=== PATIENT | female | born 2000 | race Caucasian/White ===

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

== ENCOUNTER → 2022-03-24 10:32 | Outpatient (BNVA) | payer MEDICAID, SELFPAY | PROVIDERS: PCP Nurse Practitioner; Visit Provider Nurse Practitioner Family | DX: R05.9 Cough, unspecified (principal); Z20.828 Contact with and (suspected) exposure to other viral communicable diseases; R68.89 Other general symptoms and signs | CPT/HCPCS: 87400 ==

== ENCOUNTER → 2022-04-15 10:47 | Outpatient (BNVA) | payer MEDICAID, SELFPAY | PROVIDERS: PCP Nurse Practitioner; Visit Provider Nurse Practitioner Family | DX: Z72.51 High risk heterosexual behavior (principal); F41.1 Generalized anxiety disorder; J30.1 Allergic rhinitis due to pollen | CPT/HCPCS: 81025 ==

== ENCOUNTER → 2022-08-04 08:50 | Outpatient (BNVA) | payer MEDICAID, SELFPAY | PROVIDERS: PCP Nurse Practitioner; Visit Provider Family Medicine | DX: F41.1 Generalized anxiety disorder (principal); R20.2 Paresthesia of skin; R51.9 Headache, unspecified; R53.1 Weakness | CPT/HCPCS: 80053; 82607; 84443; 85025; 85651; 86141; 86160; 86162; 86235; 86255; 86376 ==

== ENCOUNTER → 2022-08-25 13:10 | Outpatient (BNVA) | payer MEDICAID, SELFPAY | PROVIDERS: PCP Nurse Practitioner; Visit Provider Student in an Organized Health Care Education/Training Program | DX: S52.121A Displaced fracture of head of right radius, initial encounter for closed fracture (principal); V80.010A Animal-rider injured by fall from or being thrown from horse in noncollision accident, initial encounter | CPT/HCPCS: 73080 ==

== ENCOUNTER → 2022-09-01 08:38 | Outpatient (BNVA) | payer MEDICAID, SELFPAY | PROVIDERS: PCP Nurse Practitioner; Visit Provider Nurse Practitioner Family | DX: R50.9 Fever, unspecified (principal) | CPT/HCPCS: 87071; 87880 ==

== ENCOUNTER 2022-09-04 06:00 | Outpatient (RCR) | payer MEDICAID, SELFPAY | END 2022-09-28 23:59 | disposition home or self-care (01) | LOC: APT 06:00 | PROVIDERS: PCP Nurse Practitioner; Visit Provider Student in an Organized Health Care Education/Training Program | DX: S52.121D Displaced fracture of head of right radius, subsequent encounter for closed fracture with routine healing (principal); X58.XXXD Exposure to other specified factors, subsequent encounter | CPT/HCPCS: 97110; 97140; 97162 ==

== ENCOUNTER → 2022-09-08 13:16 | Outpatient (BNVA) | payer MEDICAID, SELFPAY | PROVIDERS: PCP Nurse Practitioner; Visit Provider Student in an Organized Health Care Education/Training Program | DX: S52.121A Displaced fracture of head of right radius, initial encounter for closed fracture (principal); X58.XXXA Exposure to other specified factors, initial encounter | CPT/HCPCS: 73080 ==

== ENCOUNTER → 2022-09-11 17:37 | Outpatient (BNVA) | payer MEDICAID, SELFPAY | PROVIDERS: PCP Family Medicine; Visit Provider Registered Nurse Neonatal Intensive Care | DX: J02.9 Acute pharyngitis, unspecified (principal) | CPT/HCPCS: 87880 ==

== ENCOUNTER 2022-09-29 06:00 | Outpatient (RCR) | payer MEDICAID, SELFPAY | END 2022-10-28 23:59 | disposition home or self-care (01) | LOC: APT 06:00 | PROVIDERS: PCP Family Medicine; Visit Provider Student in an Organized Health Care Education/Training Program | DX: S52.121D Displaced fracture of head of right radius, subsequent encounter for closed fracture with routine healing (principal); X58.XXXD Exposure to other specified factors, subsequent encounter | CPT/HCPCS: 97110; 97140 ==

== ENCOUNTER → 2022-10-06 14:56 | Outpatient (BNVA) | payer MEDICAID, SELFPAY | PROVIDERS: PCP Family Medicine; Visit Provider Student in an Organized Health Care Education/Training Program | DX: S52.121A Displaced fracture of head of right radius, initial encounter for closed fracture (principal); X58.XXXA Exposure to other specified factors, initial encounter | CPT/HCPCS: 73080 ==

== ENCOUNTER → 2023-01-18 15:00 | Outpatient (BNVA) | payer MEDICAID, SELFPAY | PROVIDERS: PCP Family Medicine; Visit Provider Obstetrics & Gynecology | DX: Z01.419 Encounter for gynecological examination (general) (routine) without abnormal findings (principal) | CPT/HCPCS: 88175 ==

== ENCOUNTER → 2023-04-06 08:05 | Outpatient (BNVA) | payer OTHER, MEDICAID, SELFPAY | PROVIDERS: PCP Family Medicine; Visit Provider Family Medicine | DX: R01.1 Cardiac murmur, unspecified (principal) | CPT/HCPCS: 80053; 80061; 84443; 85025 ==

== ENCOUNTER 2023-05-28 06:16 | Outpatient (CLI) | payer MEDICAID, SELFPAY ==
--- NOTE | 2023-05-28 06:30 | USCV_ITS ---
Jaye Gaviria Age: 23 Gender: F : 2000 Exam Date: 05/28/2023 06:30 Ordering Phys: Hermilo Danielle DO Technologist: Exam Location: [facility] [place] Indication: Murmur BP: / HR: 63 Rhythm: Sinus Technical Quality: Adequate MEASUREMENTS (Male / Female) Normal Values 2D ECHO LV Diastolic Diameter PLAX 3.5 cm 4.2 - 5.9 / 3.9 - 5.3 cm LV Systolic Diameter PLAX 2.4 cm IVS Diastolic Thickness 0.9 cm 0.6 - 1.0 / 0.6 - 0.9 cm IVS Systolic Thickness 1.1 cm LVPW Diastolic Thickness 0.9 cm 0.6 - 1.0 / 0.6 - 0.9 cm LVPW Systolic Thickness 1.1 cm LVOT Diameter 2.0 cm LV Ejection Fraction 2D Teich 63.5 % LV Ejection Fraction MOD 2C 78.3 % LV Ejection Fraction 2C AL 77.3 % LA Diameter 2.5 cm IVC Diameter 2.3 cm M-MODE Aortic Annulus Diameter 2.4 cm LA Ao Ratio MM 1.1 MV E Point Septal Separation 0.5 cm DOPPLER AV Peak Velocity 140.0 cm/s LVOT Peak Velocity 108.0 cm/s AV Area Cont Eq vti 2.6 cm squared AV Area Cont Eq pk 2.5 cm squared MV Area PHT 3.9 cm squared Mitral E to A Ratio 2.2 MV E' Velocity 62.0 cm/s Mitral E to MV E' Ratio 5.4 Mitral E to LV E' Lateral Ratio 5.3 Mitral E to LV E' Septal Ratio 5.6 TR Peak Velocity 215.0 cm/s TR Peak Gradient 18.5 mmHg RV Acceleration Time 0.2 s FINDINGS Left Ventricle Normal left ventricular size, systolic function and wall thickness, with no regional wall motion abnormalities. Left ventricular ejection fraction is estimated at 70 %. Normal diastolic function for age. Right Ventricle Normal right ventricular size and systolic function. Right ventricular systolic pressure 20 mmHg. Right Atrium Normal right atrial size. Left Atrium Normal left atrial size. Mitral Valve Structurally normal mitral valve. No mitral valve stenosis. No mitral valve regurgitation. Aortic Valve Aortic valve not well visualized. No aortic valve stenosis. No aortic valve regurgitation. Tricuspid Valve Structurally normal tricuspid valve. Trace tricuspid valve regurgitation. Pulmonic Valve Pulmonic valve not well visualized. No pulmonary valve stenosis. Trace pulmonary valve regurgitation. Pericardium No pericardial effusion. Aorta Normal size aortic root and proximal ascending aorta. IVC Normal IVC dimension with >50% respiratory change of the inferior vena cava. CONCLUSIONS 1. Normal left ventricular size, systolic function and wall thickness, with no regional wall motion abnormalities. Left ventricular ejection fraction is estimated at 70 %. Normal diastolic function for age. 2. Pulmonary artery pressure estimated at 20 mm Hg. 3. No prior similar studies to compare. Portia De Anda MD (Electronically Signed) Final Date: 28 May 2023 17:14 S
== END 2023-05-28 06:17 | disposition home or self-care (01) ==
PROVIDERS: PCP Family Medicine; Visit Provider Family Medicine
DX: R01.1 Cardiac murmur, unspecified (principal)
CPT/HCPCS: 80053; 80061; 84443; 85025; 93306

== ENCOUNTER → 2023-07-29 14:00 | Outpatient (BNVA) | payer MEDICAID, SELFPAY | PROVIDERS: PCP Family Medicine; Visit Provider Obstetrics & Gynecology | DX: Z32.00 Encounter for pregnancy test, result unknown (principal) | CPT/HCPCS: 84702 ==

== ENCOUNTER → 2023-08-19 08:35 | Outpatient (BNVA) | payer MEDICAID, SELFPAY | PROVIDERS: PCP Family Medicine; Visit Provider Nurse Practitioner Women's Health | DX: Z32.00 Encounter for pregnancy test, result unknown (principal) | CPT/HCPCS: 84702 ==

== ENCOUNTER → 2023-08-23 10:32 | Outpatient (BNVA) | payer MEDICAID, SELFPAY | PROVIDERS: PCP Family Medicine; Visit Provider Nurse Practitioner Women's Health | DX: Z32.00 Encounter for pregnancy test, result unknown (principal) | CPT/HCPCS: 84702 ==

== ENCOUNTER → 2023-09-15 09:42 | Outpatient (BNVA) | payer MEDICAID, SELFPAY | PROVIDERS: PCP Family Medicine; Visit Provider Nurse Practitioner Women's Health | DX: Z34.90 Encounter for supervision of normal pregnancy, unspecified, unspecified trimester (principal); Z32.01 Encounter for pregnancy test, result positive | CPT/HCPCS: 84315; 84702 ==

== ENCOUNTER 2023-10-01 15:27 | Emergency (ER) | payer MEDICAID, SELFPAY ==
[2023-10-01 15:47] VITALS: BP 119/70; PULSE 80; RESP 15; TEMP 36.8; O2SAT 100; BMI 24.0
--- NOTE | 2023-10-01 15:54 | USR_ITS ---
PROCEDURE INFORMATION: Exam: US First Trimester, Transabdominal and US , Transvaginal Exam date and time: 10/01/2023 4:26 PM Age: 23 years old Clinical indication: Lmp or gestational age (in weeks): 9w5d; Other: Bleeding/cramping; ; Additional info: 9 wks preg/bleeding/cramping LABS AND CLINICAL REPORTS: Last menstrual period start date: 07/26/2023 Gestational age (Established): 9 w 4 d Estimated due date (Established): 05/01/2024 TECHNIQUE: Imaging protocol: Real-time transabdominal obstetrical ultrasound of the maternal pelvis and a first trimester , less than 14 weeks 0 days, with image documentation. Transvaginal imaging was used for better evaluation of the fetus, adnexa, and/or cervix. COMPARISON: CT abdomen pelvis w con* [id number] 07/23/2021 11:19 AM FINDINGS: Gestation: Intrauterine gestation. Embryonic/ heart rate: 171 bpm Extra-embryonic membranes/Placenta: Unremarkable. No subchorionic bleed. Posterior forming placenta. Amniotic fluid: Amniotic fluid and extra-amniotic fluid is normal for gestational age. BIOMETRY: Gestational age (AUA): 9 w 5 d [place]-Rump length (CRL): 28.4 mm. EGA (CRL) is 9 w 5 d MATERNAL: Uterus: Unremarkable. Cervix: Cervical length measures 3 cm. Right ovary/adnexa: Not visualized. Left ovary/adnexa: Not visualized. Intraperitoneal space: No intraperitoneal free fluid. US/US OB <= 14 weeks fetus [id number] IMPRESSION: 1. Single viable intrauterine gestation, estimated at 9 weeks 5 days.
[2023-10-01 16:49] LABS: Basophils % 0.4 %; Eosinophils # 0.1 10^3/uL (0.0-0.8); Eosinophils % 0.9 %; Lymphocytes # 1.9 10^3/uL (0.8-4.8); Mean Corpuscular HGB Conc 32.8 g/dL (30-55); Mean Corpuscular Hemoglobin 28.9 pg (27-33); Mean Corpuscular Volume 88.3 fl (85-98); Monocytes # 0.5 10^3/uL (0.2-0.9); Monocytes % 6.3 %; Neutrophils # 5.99 10^3/uL (1.8-7.7); Neutrophils % 70.2 %; Nucleated Red Blood Cells % 0 %; Platelet Count 214 10^3/cmm (157-399); Red Blood Count 4.53 10^6/uL (3.85-5.65); Red Cell Distribution Width 12.6 % (12.1-15.1); White Blood Count 8.54 10^3/uL (3.29-11.43)
[2023-10-01 17:49] LABS: Alanine Aminotransferase 10 U/L (0-33); Albumin Level 4.3 g/dL (3.5-5.2); Alkaline Phosphatase 51 U/L (35-105); Anion Gap 14.5 (5-19); Aspartate Amino Transferase 15 U/L (0-32); Blood Urea Nitrogen 8 mg/dL (6-20); Carbon Dioxide 24 mmol/L (22-29); Chloride 103 mmol/L (98-107); Globulin 2.8 g/dL (1.3-4.6); Glomerular Filtration Rate 105.6 mL/min (90-130); Glucose 55 mg/dL (65-115); Osmolality Calculated 282 mOsm/kg (285-295); Potassium 3.5 mmol/L (3.5-5.1); Sodium 138 mmol/L (136-145); Total Bilirubin 0.6 mg/dL (0.15-1.2); Total Protein 7.1 g/dL (6.6-8.7)
[2023-10-01 19:37] VITALS: BP 128/61; PULSE 74; RESP 16; O2SAT 95
[2023-10-01 20:02] VITALS: BP 117/70; PULSE 101; RESP 16; TEMP 36.7
[2023-10-01 20:24] VITALS: BP 118/64; PULSE 77; RESP 16; TEMP 36.6; O2SAT 100
--- NOTE | 2023-10-01 22:44 | W.ED.PREGNAN ---
HPI - General: Chief complaint: Vaginal Bleeding Stated complaint: cramping, spotting, 9 weeks Time Seen by Provider: 10/01/23 19:22 Source: patient Mode of arrival: ambulatory Limitations: no limitations History of Present Illness: Patient presents to the emergency department today for evaluation treatment of vaginal spotting in . Patient states that she has a history of miscarriage and recently found out she was . She has had an AIR CONDITIONING INSULATION INSTALLER visit confirming but has not had an ultrasound at this time. Patient is due back to see her AIR CONDITIONING INSULATION INSTALLER in a couple of weeks. She was told to go to the emergency department for vaginal bleeding. She states last night she had some mucousy and light pink discharge vaginally. She states she did not have to wear a pad and has not had any bleeding today. She denies fevers, vomiting, severe abdominal pains. Related Data: : 2 Review of Systems General: Reports: 10 or more systems reviewed and unremarkable except in HPI and below PFSH ED PFSH: Medical History Fracture of head of right radius No pertinent past medical history Denies diabetes, asthma, hypertension, seizures, DVT/PE PCP: MACARENA Weaver Surgical History H/O wisdom tooth extraction (~08/2019) Hx of tonsillectomy age 5 Family History Grandfather Diabetes maternal Stroke maternal Heart disease paternal Grandmother Diabetes maternal and paternal Hypertension maternal Heart disease maternal Father Stroke Denies family history of Colon cancer Ovarian cancer Hyperlipidemia Breast cancer Uterine cancer Thyroid disease Social History Smoking and tobacco/nicotine status: never used tobacco/nicotine Substance/Drug Use: never Do you think of yourself as: Straight/Heterosexual Female Reproductive History: : 2 Physical Exam Const: COMMON NORMALS: no acute distress, average body habitus, patient oriented x3 and alert HENMT: COMMON NORMALS: normocephalic, atraumatic, hearing grossly normal bilaterally and moist oral mucous membranes HEAD & SCALP: normocephalic and atraumatic Eye: COMMON NORMALS: Equal, round and reactive pupils present, EOMs intact bilaterally and conjunctivae normal CONJUNCTIVA: Yes conjunctivae normal PUPIL: Yes Equal, round and reactive pupils present Neck/C-Spine: COMMON NORMALS: no JVD Lymph: LYMPHATIC: no lymphadenopathy noted Resp: COMMON NORMALS: normal respiratory effort, No retractions and No use of accessory muscles Cardio: COMMON NORMALS: no JVD and regular rate RATE: regular rate GI: OTHER: Soft. Nontender. Extremity: COMMON NORMALS: normal to inspection, full ROM and capillary refill normal Neuro: COMMON NORMALS: patient oriented x3 SENSORIUM/ORIENTATION: Yes alert Psych: COMMON NORMALS: mental status grossly normal, cooperative, normal affect, speech normal and activity/motor behavior normal SPEECH: Yes normal speech Course Vital Signs: Vital signs: Vital Signs Temperature 97.9 F 10/01/23 20:24 Pulse Rate 77 10/01/23 20:24 Respiratory Rate 16 10/01/23 20:24 Blood Pressure 118/64 10/01/23 20:24 Pulse Oximetry 100 10/01/23 20:24 Oxygen Delivery Me thod Room Air 10/01/23 15:47 MDM - OB/Uterine Contractions Medical Decision Making Patient presents to the emergency department today complaining of spotting yesterday-none today. She is denying contractions or cramping at this time. Patient's ultrasound reveals intrauterine with heart tones of 171. No signs of subchorionic hemorrhage. Patient's lab work is unremarkable. Patient is a negative blood type and was provided a RhoGAM shot here in the emergency department today. Patient's serum hCG level is greater than 71,000. Discussed with her tracking her hCG levels every 48 hours or so and recommended she get her levels checked Wednesday night or through her AIR CONDITIONING INSULATION INSTALLER first thing on Wednesday morning. Explained that continued increase in these levels indicate continue . Decrease in these levels could indicate a problem and would continue to be evaluated for several more days. She was given strict return precautions for increase in vaginal bleeding including clots or saturating pads hourly. Encouraged pelvic rest during this time as well. Patient verbalized understanding and agreement to treatment plan. Differential Diagnosis Unlikely normal delivery at term, hemorrhage, -induced hypertension, premature labor, pre-eclampsia or eclampsia Lab Data 10/01/23 16:40 10/01/23 16:40 Radiology Impressions Ultrasound 10/01/23 15:54 IMPRESSION: 1. Single viable intrauterine gestation, estimated at 9 weeks 5 days. Laboratory Results WBC 8.54 10^3/uL (3.29-11.43) 10/01/23 16:40 RBC 4.53 10^6/uL (3.85-5.65) 10/01/23 16:40 Hgb 13.10 g/dL (11.27-16.99) 10/01/23 16:40 Hct 40.0 % (36-47) 10/01/23 16:40 MCV 88.3 fl (85-98) 10/01/23 16:40 MCH 28.9 pg (27-33) 10/01/23 16:40 MCHC 32.8 g/dL (30-55) 10/01/23 16:40 RDW 12.6 % (12.1-15.1) 10/01/23 16:40 Plt Count 214 10^3/cmm (157-399) 10/01/23 16:40 MPV 11.0 fL (7.4-10.4) H 10/01/23 16:40 Neut % (Auto) 70.2 % 10/01/23 16:40 Lymph % (Auto) 22.0 % 10/01/23 16:40 [place] % (Auto) 6.3 % 10/01/23 16:40 Eos % (Auto) 0.9 % 10/01/23 16:40 Baso % (Auto) 0.4 % 10/01/23 16:40 Neut # (Auto) 5.99 10^3/uL (1.8-7.7) 10/01/23 16:40 Lymph # (Auto) 1.9 10^3/uL (0.8-4.8) 10/01/23 16:40 [place] # (Auto) 0.5 10^3/uL (0.2-0.9) 10/01/23 16:40 Eos # (Auto) 0.1 10^3/uL (0.0-0.8) 10/01/23 16:40 Baso # (Auto) 0.0 10^3/uL (0.0-0.1) 10/01/23 16:40 Nucleated RBC % (auto) 0 % 10/01/23 16:40 Nucleated RBCs # 0.0 /100WBC 10/01/23 16:40 Sodium 138 mmol/L (136-145) 10/01/23 16:40 Potassium 3.5 mmol/L (3.5-5.1) 10/01/23 16:40 Chloride 103 mmol/L (98-107) 10/01/23 16:40 Carbon Dioxide 24 mmol/L (22-29) 10/01/23 16:40 Anion Gap 14.5 (5-19) 10/01/23 16:40 BUN 8 mg/dL (6-20) 10/01/23 16:40 Creatinine 0.7 mg/dL (0.5-0.9) 10/01/23 16:40 GFR Calculation 105.6 mL/min (90-130) 10/01/23 16:40 Glucose 55 mg/dL (65-115) L 10/01/23 16:40 Calculated Osmolality 282 mOsm/kg (285-295) L 10/01/23 16:40 Calcium 9.0 mg/dL (8.5-10.5) 10/01/23 16:40 Total Bilirubin 0.6 mg/dL (0.15-1.2) 10/01/23 16:40 AST 15 U/L (0-32) 10/01/23 16:40 ALT 10 U/L (0-33) 10/01/23 16:40 Alkaline Phosphatase 51 U/L (35-105) 10/01/23 16:40 Total Protein 7.1 g/dL (6.6-8.7) 10/01/23 16:40 Albumin 4.3 g/dL (3.5-5.2) 10/01/23 16:40 Globulin 2.8 g/dL (1.3-4.6) 10/01/23 16:40 Ser , Semi-Qnt 61531.00 mIU/mL 10/01/23 16:40 Blood Type A Negative 10/01/23 17:35 Rho(D) Type Negative 10/01/23 17:35 Antibody Screen Negative 10/01/23 17:35 All radiology interpretation(s) finalized by discharge Discharge Plan Discharge Patient Disposition: Home Clinical Impression: Vaginal bleeding affecting early Condition: Stable Prescriptions: No Action Classic 28 mg iron- 800 mcg tablet PO DAILY Discharge Orders: Discharge ED (Routine); Ordered 10/01/23 Ordered By: Reyna Caraballo Referrals: Hermilo Danielle, DO [Primary Care Provider] - Patient Instructions: Opioid Safety, Pain Management Activity Restrictions/Additional Instructions: Labs today show no acute concerns. Your blood type is a negative. As we discussed, negative blood types can have a cross reaction with blood which is why we provide an injection called RhoGAM to any mother with a negative blood type affected by bleeding during . Your ultrasound confirms an intrauterine at this time. heart tones were recorded at 171 bpm. There are no signs of irregularities or abnormalities on your ultrasound today. Your blood hormone level was greater than 71,000.. It is this hormone level that we monitor while mothers are and bleeding. We expect these numbers on average to double every 48 hours or so. We recommend having years checked on Wednesday or, having your primary care/AIR [employer]ING INSULATION INSTALLER order a repeat hCG level for you on Wednesday. If the numbers continue to trend up, you are most likely progressing normally with your . If the number is going down they will continue to monitor this hormone level for several more days. If you develop return of bleeding, heavy bleeding Saturating a pad every 1-2 hours, develop severe abdominal pains, have vomiting, or fever you need to be seen and reevaluated back in the emergency department. At this time we recommend pelvic rest-do not insert anything into the vaginal canal including tampons or engaging in vaginal intercourse. Coding Level of Care Code ED Membership Manager for Issac Reddy
== END 2023-10-01 20:25 | disposition home or self-care (01) ==
PROVIDERS: Physician Assistant; Emergency Provider Physician Assistant; PCP Family Medicine
DX: O20.9 Hemorrhage in early pregnancy, unspecified (principal); Z3A.09 9 weeks gestation of pregnancy
CPT/HCPCS: 36415; 76801; 80053; 84702; 85025; 86850; 86900; 90384; 99284

== ENCOUNTER → 2023-10-07 08:04 | Outpatient (BNVA) | payer MEDICAID, SELFPAY | PROVIDERS: PCP Family Medicine; Visit Provider Family Medicine | DX: Z34.90 Encounter for supervision of normal pregnancy, unspecified, unspecified trimester (principal) | CPT/HCPCS: 84144 ==

== ENCOUNTER → 2023-10-25 13:07 | Outpatient (BNVA) | payer MEDICAID, SELFPAY | PROVIDERS: PCP Family Medicine; Visit Provider Family Medicine | DX: Z34.90 Encounter for supervision of normal pregnancy, unspecified, unspecified trimester (principal); R30.0 Dysuria; Z34.00 Encounter for supervision of normal first pregnancy, unspecified trimester | CPT/HCPCS: 80307; 81000; 81025; 87086 ==

== ENCOUNTER 2024-02-09 07:22 | Oncology outpatient (recurring) (ONCR) | payer MEDICAID, SELFPAY ==
[2024-02-09 16:00] VITALS: BP 163/75; PULSE 97; RESP 16; TEMP 36.9; O2SAT 99
[2024-02-09 16:14] VITALS: BP 117/73; PULSE 82; RESP 16; TEMP 36.3; O2SAT 98
== END 2024-02-27 23:59 | disposition home or self-care (01) ==
PROVIDERS: PCP Family Medicine; Visit Provider Family Medicine
DX: O26.893 Other specified pregnancy related conditions, third trimester (principal); Z67.91 Unspecified blood type, Rh negative; Z23 Encounter for immunization; Z53.9 Procedure and treatment not carried out, unspecified reason
CPT/HCPCS: 36415; 36430; 86850; 86900; 90384

== ENCOUNTER 2024-03-15 22:30 | Outpatient (CLI) | payer MEDICAID, SELFPAY ==
[2024-03-15 22:30] VITALS: BMI 29.3
[2024-03-15 22:44] VITALS: BP 125/63; PULSE 80
[2024-03-15 23:05] VITALS: BP 113/60; PULSE 74
[2024-03-15 23:12] VITALS: BP 115/69; PULSE 76
== END 2024-03-15 23:20 | disposition home or self-care (01) ==
LOC: OPOB 22:38 → OBGYN 22:39
PROVIDERS: PCP Family Medicine; Visit Provider Family Medicine
DX: O26.859 Spotting complicating pregnancy, unspecified trimester (principal); Z3A.00 Weeks of gestation of pregnancy not specified
CPT/HCPCS: 59025; 99211

== ENCOUNTER 2024-04-27 01:10 | Inpatient (IN) | payer OTHER, MEDICAID, SELFPAY ==
[2024-04-26] VITALS (20 sets, daily range): BP systolic 104–168; BP diastolic 57–94; PULSE 93–137; TEMP 36.3; O2SAT 92–100; BMI 30.6
[2024-04-26 18:06] LABS: Basophils % 0.2 %; Eosinophils % 0.2 %; Lymphocytes # 1.5 10^3/uL (0.8-4.8); Lymphocytes % 10.1 %; Mean Corpuscular HGB Conc 31.8 g/dL (30-55); Mean Corpuscular Hemoglobin 26.3 pg (27-33); Mean Corpuscular Volume 82.7 fl (85-98); Mean Platelet Volume 12.8 fL (7.4-10.4); Monocytes # 0.8 10^3/uL (0.2-0.9); Monocytes % 5.7 %; Neutrophils # 12.25 10^3/uL (1.8-7.7); Neutrophils % 83.3 %; Nucleated Red Blood Cells % 0 %; Platelet Count 191 10^3/cmm (157-399); Red Blood Count 4.11 10^6/uL (3.85-5.65); Red Cell Distribution Width 13.2 % (12.1-15.1); White Blood Count 14.71 10^3/uL (3.29-11.43)
[2024-04-26] MEDS: miSOPROStol 100 mcg tablet 25 MCG SUBLINGUAL (18:26)
[2024-04-26] MEDS: lactated ringers 1,000 ML 999 ML IV ×2 (22:02→23:05)
--- NOTE | 2024-04-26 22:59 | P.ANESUD_ITS ---
Pre-Anesthetic Update Pre-Anesthetic Assessment: Date of Surgery/Procedure: 04/26/24 Preop [place] gnosis: labor pains Proposed Procedure: epidural Any changes to Pre-Anesthetic Assessment?: No Labs Last 48hrs: Short CBC 04/26/24 Range/Units 17:30 WBC 14.71 H (3.29-11.43) 10^ 3/uL Hgb 10.80 L (11.27-16.99) g/ dL Hct 34.0 L (36-47) % MCV 82.7 L (85-98) fl Plt Count 191 (157-399) 10^3/c mm Neut % (Auto) 83.3 % Neut # (Auto) 12.25 H (1.8-7.7) 10^3/u L Blood Bank 04/26/24 17:30 Blood Type A Negative Rho(D) Type Rh negative Antibody Screen Negative Vitals: Pulse Rate 96 04/26/24 20:29 Pulse Rhythm Regular 04/26/24 17:19 Pulse Strength 3+ Normal 04/26/24 17:19 Respiratory Effort Spontaneous, Non- Labored 04/26/24 17:19 Respiratory Depth Normal 04/26/24 17:19 Respiratory Patter n Normal 04/26/24 17:19 Blood Pressure 129/74 04/26/24 20:29 Oxygen Delivery Me thod Room Air 04/26/24 22:44 Exam: Pre-Anes Outpt Exam: alert, oriented x 3, clear to auscultation bilaterally and regular rate & rhythm Cardiac Studies: Echocardiogram 05/28/23
--- NOTE | 2024-04-26 23:24 | P.ANES_ITS ---
Anesthesia Procedures Procedure/Date: 04/26/24 epidural Procedure Narrative: epidural complete, bolus given, epidural pump initiated with PSYCHOLOGIST DEVELOPMENTAL education given, vitals taken during procedure and satisfactory throughout, patient admits to decrease pain, report of procedure to OB RN Epidural: Time Out Performed: Yes Consents Signed: Procedure Consent Consent: requested by attending/covering physician, from patient, risks and benefits reviewed and patient agrees to proceed Lumbar Level: L3-L4 Ep idural position: sitting Epidural procedure: sterile prep of area, 1% lidocaine to numb the area (3 mL), 18 g needle, negative for paresthesia passed, neg for paresthesia, test dose given, 1.5% xylocaine 1:200k epi (5 mL), 0.2% Ropivacaine bolus ml (5 mL), placed PCEA, no systemic response, sterile dressing applied, L.U.D. no apparent complications and 0.2% Ropiavacaine @ mls/hr (13 mL/hr)
[2024-04-26] MEDS: ROPivacaine syringe 100 MG/50 ML SYRINGE 13 MG EPIDURAL (23:34)
[2024-04-27] VITALS (37 sets, daily range): BP systolic 93–156; BP diastolic 50–75; PULSE 64–160; RESP 16–18; TEMP 36.4–36.8; O2SAT 97–98
[2024-04-27] MEDS: ROPivacaine syringe 100 MG/50 ML SYRINGE 13 MG EPIDURAL (02:43)
--- NOTE | 2024-04-27 03:24 | P.HPUD_ITS ---
Labor & Delivery H&P Update Date of Procedure: April 27, 2024 Date H&P Performed: 04/25/24 Changes to previous documentation: Grossly ruptured amniotic membranes Admission Diagnosis: 24-year-old 1 at 39 weeks estimated gestational age Preop diagnosis: labor pains Planned procedure: Spontaneous vaginal delivery Other information: The patient is a 24-year-old 2 P0010 at 39 weeks estimated gestational age presenting to the OB department with spontaneous rupture membranes. Her had otherwise been unremarkable. Her membranes ruptured shortly prior to arriving at the hospital. Her has been otherwise unremarkable. Her blood type is A-. Her antibody screen was positive after receiving a RhoGAM shot in the ER. Her glucose screen was 84. Her GBS status is negative. She is rubella immune. The remainder of her infectious disease profile is within nor mal limits. Related Problem List Diagnoses (1) 39 weeks gestation of : A&P Assessment and plan (1) 39 weeks gestation of : I anticipate vaginal delivery. Status: Acute
[2024-04-27] MEDS: oxytocin 30 UNIT/500 ML BAG 600 UNIT IV (05:23)
--- NOTE | 2024-04-27 05:34 | P.PCNOB_ITS ---
Delivery Note: Date of delivery: April 27, 2024 Pre-delivery diagnoses: 24-year-old 2 para 0-0-1-0 at 39 weeks estimated stational age with spontaneous rupture membranes Post-delivery diagnoses: Status post vacuum-assisted vaginal delivery Procedure: Vacuum-assisted vaginal delivery Delivering Physician: Barry Brady Estimated blood loss (mL): 200 Pre-Delivery Course: The patient presented to the hospital complaining of possible rupture membranes. She was noted to be nitrazine positive and grossly ruptured. She was having infrequent contractions that were not painful. She was placed on Cytotec 25 mcg x 1. She began to have more consistent and painful contractions. An epidural was placed. She then progressed to complete without difficulty. Delivery: DELIVERY: The patient progressed to complete without difficulty. She was noted to have some tachycardia. She is also noted to have recurrent late decelerations. Oxygen was placed. The late decelerations did not resolve, and she was having some deep late decelerations and some minimal variability. As result I elected to assist her with a [place] vacuum. The patient's head was at a +2 station. I carefully felt the fontanelles and noted that the head was in a JIMBO position. The acute vacuum was carefully placed and the vacuum was pumped into the green pressure zone. I then assisted her with 3 contractions. The pressure was released in between contractions. There were no pop-off's. She delivered a male with a weight of 7 pounds 3 ounces with Apgars of 8, 9. The baby was delivered from the JIMBO position. The baby's mouth and nose were suctioned at the site of the perineum. The baby was then completely delivered and placed on the mother's abdomen. The cord was then clamped and cut 1 minute after delivery. There was no nuchal cord. Moderate meconium was noted. The placenta and 3 vessel cord were delivered intact shortly thereafter. The perineum and vaginal vault were carefully examined. A first-degree posterior midline vaginal laceration was noted that was bleeding. It was repaired with a running stitch with 3-0 Vicryl. Both the mother and the baby were in stable condition. Post-Delivery Status: Good History History History 2 Term 0 0 Miscarriages/Ectopic 1 Living Children 0 Past Pregnancies Del. Date GA/Weeks Outcome Route Wt Inf Gender Labor Lgth Comp. Anesth esia Location 11/29/17 6 spontaneous Delivery Date: 11/29/17 Last Updated by: Prieto Parra MD No D&C A&P Assessment and plan (1) 39 weeks gestation of : I anticipate routine care. (2) Vacuum-assisted vaginal delivery: Coding Level of Care Code Acute Code for Chg Fwd Diagnoses 39 weeks gestation of Z3A.39 Vacuum-assisted vaginal delivery Z37.9
[2024-04-27] MEDS: PRENATAL VIT NO.130/IRON/FOLIC 1 EACH TABLET PO (08:33)
[2024-04-27] MEDS: ibuprofen 800 mg tablet PO ×3 (08:33→20:46)
[2024-04-27] MEDS: lanolin oint 7 gm 1 APPLIC TOPICAL (08:34)
[2024-04-27] MEDS: benzocaine-menthol 78 gm Canister 1 SPRAY TOPICAL (08:34)
[2024-04-27] MEDS: docusate sodium 100 mg Capsule PO ×2 (08:34→20:46)
[2024-04-27 19:45] LABS: Hematocrit 25.6 % (36-47); Mean Corpuscular HGB Conc 32.4 g/dL (30-55); Mean Corpuscular Hemoglobin 26.3 pg (27-33); Mean Corpuscular Volume 81.3 fl (85-98); Mean Platelet Volume 13.3 fL (7.4-10.4); Platelet Count 203 10^3/cmm (157-399); Red Blood Count 3.15 10^6/uL (3.85-5.65); Red Cell Distribution Width 13.9 % (12.1-15.1); White Blood Count 28.83 10^3/uL (3.29-11.43)
[2024-04-28 04:00] VITALS: BP 102/67; PULSE 85; RESP 18; TEMP 36.6; TEMP 36.7; O2SAT 97
--- NOTE | 2024-04-28 07:08 | P.DS_ITS ---
Discharge Providers BEEHIVE KILN CHARCOAL BURNER Date of Admission: 04/27/24 01:10 Date of Discharge: 04/28/24 Attending Provider at Admission: Barry Brady MD Attending Provider at Discharge: Barry Brady MD Primary Care Provider: Hemrilo Danielle DO Diagnoses at Discharge Discharge Diagnosis (1) 39 weeks gestation of : Status: Acute (2) Vacuum-assisted vaginal delivery: Status: Acute Reason for Visit Reason for Visit: Possible [facility] Hospital Course Hospital Course The patient presented to the hospital with spontaneous rupture membranes. She was placed on Cytotec 25 mcg sublingual x 1. An epidural was placed. She progressed to complete. During the second stage of labor, the patient was having recurrent late decelerations and minimal variability. The baby is not making much change in position after arriving at +2 station. As result a vacuum was used to assisted delivery. The baby was easily delivered after 3 pushes using a vacuum. The mom had a single first-degree posterior midline tear. Her course was otherwise unremarkable. Her bleeding was within normal limits. Her pain was well-controlled. She breast-fed her baby. There were no concerns. Information Peripartum Data: Delivery Method: Vaginal Physical Exam Narrative: The patient is alert. She appears comfortable. Her heart has a regular rate and rhythm with no murmurs appreciated. Lungs are clear to auscultation bilaterally. Her fundus is firm and below the umbilicus. Urinary Catheter Management: Vargas: Cath Placed During This Visit: yes Urinary Catheter Date of Insertion: 04/27/24 Urinary Catheter Time of Insertion: 22:34 History History History 2 Term 0 0 Miscarriages/Ectopic 1 Living Children 0 Past Pregnancies Del. Date GA/Weeks Outcome Route Wt Inf Gender Labor Lgth Comp. Anesth esia Location 11/29/17 6 spontaneous Delivery Date: 11/29/17 Last Updated by: Prieto Parra MD No D&C Discharge Data Studies Completed and Pending Pending at discharge Category Date Time Status Complete Crossmatch Routine Lab 04/26/24 17:30 Results Rho D Immune Globulin Routine Lab 04/26/24 17:30 Results Type and Screen Routine Lab 04/26/24 17:30 Results Laboratory Results WBC 28.83 10^3/uL (3.29-11.43) H 04/27/24 18:19 RBC 3.15 10^6/uL (3.85-5.65) L 04/27/24 18:19 Hgb 8.30 g/dL (11.27-16.99) L 04/27/24 18:19 Hct 25.6 % (36-47) L 04/27/24 18:19 MCV 81.3 fl (85-98) L 04/27/24 18:19 MCH 26.3 pg (27-33) L 04/27/24 18:19 MCHC 32.4 g/dL (30-55) 04/27/24 18:19 RDW 13.9 % (12.1-15.1) 04/27/24 18:19 Plt Count 203 10^3/cmm (157-399) 04/27/24 18:19 MPV 13.3 fL (7.4-10.4) H 04/27/24 18:19 Neut % (Auto) 83.3 % 04/26/24 17:30 Lymph % (Auto) 10.1 % 04/26/24 17:30 Routt % (Auto) 5.7 % 04/26/24 17:30 Eos % (Auto) 0.2 % 04/26/24 17:30 Baso % (Auto) 0.2 % 04/26/24 17:30 Neut # (Auto) 12.25 10^3/uL (1.8-7.7) H 04/26/24 17:30 Lymph # (Auto) 1.5 10^3/uL (0.8-4.8) 04/26/24 17:30 Routt # (Auto) 0.8 10^3/uL (0.2-0.9) 04/26/24 17:30 Eos # (Auto) 0.0 10^3/uL (0.0-0.8) 04/26/24 17:30 Baso # (Auto) 0.0 10^3/uL (0.0-0.1) 04/26/24 17:30 Nucleated RBC % (auto) 0 % 04/26/24 17:30 Nucleated RBCs # 0.0 /100WBC 04/26/24 17:30 Blood Type A Negative 04/26/24 17:30 Rho(D) Type Rh negative 04/26/24 17:30 Antibody Screen Negative 04/26/24 17:30 Screen Negative (Negative) 04/27/24 18:19 Vitals Last Vital Signs Temp 98.0 F 04/28/24 04:00 Pulse 85 04/28/24 04:00 Resp 18 04/28/24 04:00 BP 102/67 04/28/24 04:00 Pulse Ox 97 04/28/24 04:00 O2 Del Method Room Air 04/28/24 04:00 Results Labs OB ([facility]): Blood Type A Negative 04/26/24 Antibody Screen Negative 04/26/24 Hct 25.6 % (36-47) L 04/27/24 Hgb 8.30 g/dL (11.27-16.99) L 04/27/24 Rho(D) Type Rh negative 04/26/24 Plt Count 203 10^3/cmm (157-399) 04/27/24 TSH 2.07 uIU/mL (0.27-4.20) 04/06/23 Glucose Tolerance 02/05/21 Hemoglobin A1c 4.6 % (4.0-6.0) 01/22/21 Progesterone 23.92 ng/mL 10/07/23 Ser , Semi-Qnt 25448.00 mIU/mL 10/01/23 HCG, Qual Positive (Negative) H 10/25/23 Urine Opiates Screen Negative ng/mL (Negative) 10/25/23 Ur Barbiturates Screen Negative ng/mL (Negative) 10/25/23 Ur Phencyclidine Scrn Negative ng/mL (Negative) 10/25/23 Ur Amphetamines Screen Negative ng/mL (Negative) 10/25/23 U Benzodiazepines Scrn Negative ng/mL (Negative) 10/25/23 Urine Cocaine Screen Negative ng/mL (Negative) 10/25/23 U Marijuana (THC) Screen Negative ng/mL (Negative) 10/25/23 Micro Urine Specimen 10/25/23 Pap Smear Interpret See note 01/18/23 Discharge Plan Discharge Patient Disposition: Home Condition: Stable Prescriptions: New ibuprofen 800 mg Tablet 800 mg PO TID Qty: 45 0RF Continued Classic 28 mg iron- 800 mcg tablet 1 tab PO DAILY Discharge Orders: Discharge Order (Routine); Ordered 04/28/24 Ordered By: Baryr Brady Discharge Diet: Usual diet Discharge Activity: Limit activity as instructed Patient Instructions: Opioid Safety Discharge Attestations [facility]EE[facility] KIL[facility]CO[facility] BURNER Time Spent in Discharge Care*: less than 30 min Coding Level of Care Code Acute Code for Chg Fwd Diagnoses 39 weeks gestation of Z3A.39 Vacuum-assisted vaginal delivery Z37.9
[2024-04-28 09:20] VITALS: BP 115/60; PULSE 107; RESP 18; TEMP 36.8; O2SAT 98
[2024-04-28] MEDS: ibuprofen 800 mg tablet PO (09:24)
[2024-04-28] MEDS: PRENATAL VIT NO.130/IRON/FOLIC 1 EACH TABLET PO (09:24)
[2024-04-28] MEDS: docusate sodium 100 mg Capsule PO (09:24)
[2024-04-28 09:45] VITALS: BP 115/60; PULSE 107; RESP 18; TEMP 36.8; O2SAT 98
--- NOTE | 2024-04-29 11:35 | ANE.PACU2 ---
Inpatient post-anesthesia follow up: Airway intact: Yes Vital signs: Temperature 98.2 F Pulse Rate 107 Respiratory Rate 18 Blood Pressure 115/60 Pulse Oximetry 98 Oxygen Delivery Me thod Room Air Oxygen Flow Rate Fraction of Inspir ed Oxygen Hydration adequate: Yes Nausea and vomiting: No Pain level: 1 Mental status: Baseline Epidural Start/End: Epidural Start Date: 04/26/24 Epidural Start Time: 23:05 Epidural End Date: 04/27/24 Epidural End Time: 07:45
== END 2024-04-28 09:45 | disposition home or self-care (01) | DRG 807 ==
LOC: OPOB 01:12 → OBGYN 01:12
PROVIDERS: Admitting Provider Family Medicine; PCP Family Medicine; Visit Provider Family Medicine
DX: O76 Abnormality in fetal heart rate and rhythm complicating labor and delivery (principal); Z37.0 Single live birth; O77.0 Labor and delivery complicated by meconium in amniotic fluid; O70.0 First degree perineal laceration during delivery; Z3A.39 39 weeks gestation of pregnancy; O26.893 Other specified pregnancy related conditions, third trimester; Z67.11 Type A blood, Rh negative
CPT/HCPCS: 36415; 36430; 51702; 59025; 59409; 83986; 85025; 85027; 85460; 86850; 86900; 90384; 98960; J2590; J2795; J7120

== ENCOUNTER → 2025-10-16 11:56 | Outpatient (BNVA) | payer MEDICAID, SELFPAY | PROVIDERS: PCP Family Medicine; Visit Provider Clinical Nurse Specialist Adult Health | DX: R10.20 Pelvic and perineal pain unspecified side (principal) | CPT/HCPCS: 81000; 87070; 87086; 87205; 87491; 87591; 87661 ==